=== PATIENT | male | born 2000 ===

== ENCOUNTER 2021-03-16 23:25 | Emergency (ER) | payer SELFPAY ==
[2021-03-16 23:42] VITALS: BP 133/77
--- NOTE | 2021-03-17 00:07 | Emergency Department Report ---
ED Fall HPI - General Chief Complaint: Fall Stated Complaint: FALL FROM 2ND FLOOR/KNEE/ELBOW PAIN Time Seen by Provider: 03/16/21 23:35 Source: patient Mode of arrival: Ambulatory Limitations: No Limitations - History of Present Illness Initial Comments: Patient is a 21-year-old male who presents emergency room with complaints of left ankle pain, left foot pain, left knee pain, left elbow pain. Patient states he was working today and fell off of a ladder at 10 AM. Patient states he landed on his left foot. Patient states that he did not hit his head. Patient denies loss of consciousness. Patient denies other injury. Patient states that his left foot, left ankle and left knee pain is a 10 out of 10. Patient states his left elbow is a 5 out of 10. Patient states that the pain is better with rest and worse with movement and palpation. Patient states he rested but the pain continued. Patient states the pain is worsening. Patient denies other injury. Patient denies chest pain. Patient denies shortness of breath. Patient states he fell from 2 stories up. Patient denies recent travel. Patient denies recent international travel. Patient denies exposure to the novel coronavirus. Patient denies sick contacts. Patient denies fever and chills. Patient denies cough. Patient denies diarrhea. Patient denies coming in contact with anybody with symptoms of the novel coronavirus. -: Sudden, hour(s) Fall From: from height (distance) Fall Witnessed: yes, by bystander Place Fall Occurred: work Loss of Consciousness: none Prolonged Down Time?: no Symptoms Prior to Fall: none Location - Extremities: Left: Elbow, Knee, Ankle, Foot Severity: severe Context: tripped/slipped Associated Symptoms: denies: headache, neck pain, numbness, weakness, chest paint, shortness of breath, abdominal pain, hematuria, lightheaded, vertigo, confusion - Related Data Previous Rx's Medication Instructions Recorded Last Taken Type Acetaminophen/Codeine [Tylenol 1 tab PO Q6H PRN #12 tab 03/17/21 Unknown Rx /Codeine # 3 tab] Allergies Allergy/AdvReac Type Severity Reaction Status Date / Time No Known Allergies Allergy Unverified 03/16/21 23:38 ED Review of Systems ROS: Stated complaint: FALL FROM 2ND FLOOR/KNEE/ELBOW PAIN Other details as noted in HPI Constitutional: denies: chills, fever Eyes: denies: eye pain, eye discharge, vision change ENT: denies: ear pain, throat pain Respiratory: denies: cough, shortness of breath, wheezing Cardiovascular: denies: chest pain, palpitations Endocrine: no symptoms reported Gastrointestinal: denies: abdominal pain, nausea, diarrhea Genitourinary: denies: urgency, dysuria Musculoskeletal: as per HPI. denies: back pain, joint swelling, arthralgia Skin: denies: rash, lesions Neurological: denies: headache, weakness, paresthesias Psychiatric: denies: anxiety, depression Hematological/Lymphatic: denies: easy bleeding, easy bruising ED Past Medical Hx - Past Medical History Previous Medical History?: Yes Hx Diabetes: Yes (Prediabetes) - Surgical History Past Surgical History?: No - Family History Family history: no significant - Social History Smoking Status: Never Smoker Substance Use Type: None - Medications Home Medications: Home Medications Medication Instructions Recorded Confirmed Last Taken Type Acetaminophen/Codeine [Tylenol 1 tab PO Q6H PRN #12 tab 03/17/21 Unknown Rx /Codeine # 3 tab] ED Physical Exam - General Limitations: No Limitations General appearance: alert, in no apparent distress - Head Head exam: Present: atraumatic, normocephalic - Eye Eye exam: Present: normal appearance - ENT ENT exam: Present: mucous membranes moist - Neck Neck exam: Present: normal inspection - Respiratory Respiratory exam: Present: normal lung sounds bilaterally. Absent: respiratory distress - Cardiovascular Cardiovascular Exam: Present: regular rate, normal rhythm. Absent: systolic murmur, diastolic murmur, rubs, gallop - GI/Abdominal GI/Abdominal exam: Present: soft, normal bowel sounds - Rectal Rectal exam: Present: deferred - Extremities Exam Extremities exam: Present: normal inspection (Except for left knee and left foot and ankle), tenderness (Tenderness to the left knee, left ankle and left foot. Tenderness to palpation over the left elbow.), normal capillary refill. Absent: calf tenderness - Back Exam Back exam: Present: normal inspection, full ROM. Absent: tenderness - Neurological Exam Neurological exam: Present: alert, oriented X3 - Psychiatric Psychiatric exam: Present: normal affect, normal mood - Skin Skin exam: Present: warm, dry, intact, normal color. Absent: rash ED Course Vital Signs 03/16/21 23:39 Temperature 97.9 F Pulse Rate 55 L Respiratory 16 Rate Blood Pressure 133/77 O2 Sat by Pulse 99 Oximetry - Reevaluation(s) Reevaluation #1: I discussed all results and clinical findings with patient. I discussed plan of care with patient. Patient agrees with plan of care. Patient is stable for discharge. Patient will be discharged home. Patient given discharge instructions. Patient voiced understanding of discharge instructions. 03/17/21 01:31 ED Medical Decision Making - Radiology Data Radiology results: image reviewed interpreted by me: Left foot, ankle, elbow, knee x-ray: no foreign body, no osseous findings, no acute findings. Normal soft tissue. - Medical Decision Making Patient is a 21-year-old male who presents emergency room with a fall from a second story building onto his left foot and left leg. Patient states he landed on his foot. Patient states he has left foot pain, left ankle pain, left knee pain and left elbow pain. Patient denies other injury. Patient had x-rays done. Patient's x-rays are negative for acute findings. Patient clinical findings are consistent with fall, knee pain, ankle pain, foot pain, elbow pain, sprain/strain at each site. Patient not require any further emergency medical service. Patient not require inpatient service. Patient referred to orthopedist. Patient is stable to follow-up as an outpatient. I discussed all results and clinical findings with patient. I discussed plan of care with patient. Patient agrees with plan of care. Patient is stable for discharge. Patient will be discharged home. Patient given discharge instructions. Patient voiced understanding of discharge instructions. - Differential Diagnosis Sprain, strain, fracture, contusion, knee pain, foot pain, ankle pain, elbo Critical care attestation.: If time is entered above; I have spent that time in minutes in the direct care of this critically ill patient, excluding procedure time. ED Disposition Clinical Impression: Foot pain, left, Left elbow pain Left knee pain Qualifiers: Chronicity: acute Qualified Code(s): M25.562 - Pain in left knee Left ankle pain Qualifiers: Chronicity: acute Qualified Code(s): M25.572 - Pain in left ankle and joints of left foot Fall Qualifiers: Encounter type: initial encounter Qualified Code(s): W19.XXXA - Unspecified fall, initial encounter Knee sprain Qualifiers: Encounter type: initial encounter Involved ligament of knee: unspecified ligament Laterality: left Qualified Code(s): S83.92XA - Sprain of unspecified site of left knee, initial encounter Ankle sprain Qualifiers: Encounter type: initial encounter Involved ligament of ankle: unspecified ligament Laterality: left Qualified Code(s): S93.402A - Sprain of unspecified ligament of left ankle, initial encounter Disposition: 01 HOME / SELF CARE / HOMELESS Is pt being admited?: No Does the pt Need Aspirin: No Condition: Stable Instructions: Acute Knee Pain, Adult, Ankle Sprain, Phase I Rehab-SportsMed, Ankle Sprain, [id number], Ankle Sprain, Phase II Rehab-SportsMed, Joint Pain, Acute Knee Pain, Adult, [id number], How to Use a Knee Brace, Knee Sprain, Adult Additional Instructions: Patient to follow-up with primary care in 2 to 3 days. Patient to follow-up with orthopedist in 2 to 3 days. Patient to rest. Patient to increase water. Patient to avoid strenuous exercise or heavy lifting until cleared by orthopedist. Patient to take Tylenol or ibuprofen as needed for pain. Patient to take meds as directed. Patient to return to the ER if condition worsens, changes or new symptoms arise. Prescriptions: Acetaminophen/Codeine [Tylenol /Codeine # 3 tab] 1 tab PO Q6H PRN #12 tab PRN Reason: Pain , Severe (7-10) Referrals: PRIMARY MD RANDY [Primary Care Provider] - 2-3 Days EZEQUIEL PRESTON MD [Staff Physician] - 2-3 Days Time of Disposition: 01:36 Print Language: SERBIAN
--- NOTE | 2021-03-17 00:32 | XRay Report ---
Left ankle 3 views INDICATION: Left ankle pain following fall IMPRESSION: No fracture or subluxation is identified. Signer Name: Armando Fernandez MD Signed: 03/17/2021 12:28 AM Workstation Name: [id number]
--- NOTE | 2021-03-17 00:33 | XRay Report ---
Left foot 3 views INDICATION: Left foot pain following injury IMPRESSION: No fracture or subluxation of the left foot is identified. Signer Name: Armadno Fernandez MD Signed: 03/17/2021 12:29 AM Workstation Name: [id number]
--- NOTE | 2021-03-17 00:33 | XRay Report ---
Left knee 3 views INDICATION: Left knee pain following fall IMPRESSION: No fracture or subluxation of the left knee is identified. Signer Name: Armando Fernandez MD Signed: 03/17/2021 12:28 AM Workstation Name: [id number]
--- NOTE | 2021-03-17 00:53 | XRay Report ---
Left elbow 2 views INDICATION: Left elbow pain following injury IMPRESSION: No significant elbow effusion. No fracture or subluxation. Signer Name: Armando Fernandez MD Signed: 03/17/2021 12:49 AM Workstation Name: [id number]
== END 2021-03-17 02:00 | disposition home or self-care (01) ==
LOC: ED 23:25
DX: S83.92XA Sprain of unspecified site of left knee, initial encounter (principal); S93.402A Sprain of unspecified ligament of left ankle, initial encounter; M25.522 Pain in left elbow; Z79.899 Other long term (current) drug therapy; W01.0XXA Fall on same level from slipping, tripping and stumbling without subsequent striking against object, initial encounter; Y93.89 Activity, other specified; Y92.89 Other specified places as the place of occurrence of the external cause; Y99.8 Other external cause status
CPT/HCPCS: 99283